=== PATIENT | male | born 1985 | race Caucasian/White ===

== ENCOUNTER 2021-10-22 10:22 | Emergency (ER) | payer OTHER, SELFPAY ==
[2021-10-22 10:30] VITALS: BP 151/86; PULSE 82; RESP 16; TEMP 36.6; O2SAT 99
--- NOTE | 2021-10-22 10:59 | ED.WOUNDLAC ---
HPI - Wound/Laceration General Chief Complaint: Wound/Laceration Stated Complaint: laceration Time Seen by Provider: 10/22/21 10:37 History of Present Illness HPI narrative: 36-year-old male presents emergency room for evaluation of a laceration to his left index finger. Patient states he was trying to unscrew a bolt from his child's truck, when the pocket knife slipped cutting his left finger. Tetanus is not up-to-date Related Data Allergies Allergy/AdvReac Type Severity Reaction Status Date / Time No Known Allergies Allergy Verified 10/22/21 10:37 Course Course Emergency Course: 1100: Patient refusing tetanus vaccination. Discussed risk and benefits with the patient he states understanding. Vital Signs Vital signs: Vital Signs Temperature 36.6 C 10/22/21 10:30 Pulse Rate 82 10/22/21 10:30 Respiratory Rate 16 10/22/21 10:30 Blood Pressure 151/86 H 10/22/21 10:30 Pulse Oximetry 99 10/22/21 10:30 Oxygen Delivery Room Air 10/22/21 10:30 Temperature 36.6 C 10/22/21 10:30 Pulse Rate 82 10/22/21 10:30 Respiratory Rate 16 10/22/21 10:30 Blood Pressure 151/86 H 10/22/21 10:30 Pulse Oximetry 99 10/22/21 10:30 Oxygen Delivery Room Air 10/22/21 10:30 Procedures Laceration Laceration 1: Date: 10/22/21 Time: 11:19 Site: hand Side (If applicable): left Size (cm): 1.5 Description: linear Depth: simple, single layer Local Anesthetic: lidocaine 1% Amount of anesthesia used (mL): 2 Pre-repair: irrigated ====== Skin Level ====== Skin layer closed with: nylon Size (cm): 5-0 Number of sutures: 3 Technique: simple, interrupted ====== Subcutaneous Layer ====== ====== Muscle Layer ====== ====== Tendon Layer ====== Discharge Plan Discharge Clinical Impression: Laceration Patient Disposition: Home, Self-Care Condition: Stable Instructions: Antibiotic Form, Laceration (ED) Additional Instructions: Tylenol and ibuprofen as needed for pain. Sutures come out in 10 days. Monitor for signs of infection which include redness, swelling, tenderness and purulent drainage. Keep wound covered. Follow-up/Referrals: PHYSICIAN NOT ON STAFF,NONSTAFF [Primary Care Provider] - Time of Disposition: 11:20
== END 2021-10-22 11:31 | disposition home or self-care (01) ==
PROVIDERS: Emergency Provider Nurse Practitioner Family
DX: S61.211A Laceration without foreign body of left index finger without damage to nail, initial encounter (principal); W26.0XXA Contact with knife, initial encounter
CPT/HCPCS: 12001; 99282

== ENCOUNTER 2022-09-11 14:47 | Emergency (ER) | payer OTHER, SELFPAY ==
--- NOTE | ~2022-09-11 | XR_ITS ---
EXAMINATION: XR ankle LT min 3V DATE: 09/11/2022 15:19 INDICATION: Left ankle pain and swelling. TECHNIQUE: 4 views of left ankle were obtained. COMPARISON: None. FINDINGS: Bone alignment is normal. No fracture. Joint spaces are well maintained. There is ankle sof t tissue swelling. IMPRESSION: 1. No fracture. Reviewed, dictated and finalized at location L. IMPRESSION: 1. No fracture.
--- NOTE | 2022-09-11 14:58 | ED.GENADULT ---
HPI - General Adult General Chief complaint: Extremity Injury, Lower Stated complaint: INJURED L ANKLE Time Seen by Provider: 09/11/22 15:02 Source: patient, RN notes reviewed and old records reviewed Mode of arrival: ambulatory (placed in wheelchair on arrival) Limitations: no limitations History of Present Illness HPI narrative: 37 year old male presents to express care with complaints of rolling his foot/ankle [place] the [place] theater. He states that he had his hands full and his 3 kids with him and the people in front of him stopped suddenly and he twisted his left foot and ankle and now has swelling to the lateral ankle and anterior ankle and pain. Patient is unable to put full weight bearing on his left foot, circulation and sensation intact to left foot with strong pedal pulse.Patient reports that he hopped in here, can't put jessica on left foot, concern for fracture, states swelling occurred immediately. MD complaint: left ankle Onset (ago): hour(s) (1 hour ago approx) Location: left and lower extremity (ankle/ foot) Severity scale (1-10): 5 Treatments prior to arrival: none Related Data Home Medications Medication Instructions Recorded Confirmed lisinopril 20 mg tablet 20 mg PO DAILY 09/11/22 09/11/22 Allergies Allergy/AdvReac Type Severity Reaction Status Date / Time No Known Allergies Allergy Verified 10/22/21 10:37 Review of Systems Review of Systems: CONSTITUTIONAL: Denies fever, chills, or sweats. EYES: Denies visual changes, redness, or discharge. ENT: Denies rhinorrhea, congestion, sore throat, or otalgia. CARDIOVASCULAR: Denies chest pain, palpitations, swelling to left ankle from injury RESPIRATORY: Denies cough or dyspnea. GASTROINTESTINAL: Denies abdominal pain, nausea, vomiting, or diarrhea. GENITOURINARY: Denies dysuria or hematuria. SKIN: Denies rash or itching. MUSCULOSKELETAL: Denies back pain, positive for pain to his left lateral anterior ankle joint pain, or myalgia. NEUROLOGIC: Denies headache, numbness, or weakness. PSYCHIATRIC: Denies anxiety or depression. All systems reviewed & are unremarkable except as noted in HPI and below PMFSH Past Medical History Medical History (Updated 09/11/22 @ 16:12 by Gaby Mcgill NP) Hypertension Surgical History Surgical History (Updated 09/11/22 @ 15:35 by Gaby Mcgill NP) History of surgery on arm right Humerus surgery ORIF Social History Social History (Updated 09/11/22 @ 15:39 by Gaby Mcgill NP) Smoking status: Never smoker Alcohol intake: current Alcohol use details: social Substance use type: does not use Living arrangements: with family Gender identity (if verbalized by the patient): Male Comments At time of signature, agree with nursing past medical, surgical, social and family history. There is no relevant family history pertinent to the presenting complaint Exam Narrative: GENERAL: Well-appearing, well-nourished, and in no acute distress. HEAD: Normocephalic, atraumatic. EYES: PERRLA and EOMI. ENT: Nares clear, no rhinorrhea or epistaxis. Mucous membranes moist. NECK: Supple. no lymphadenopathy CHEST: Clear to auscultation. No respiratory distress. HEART: Regular rate and rhythm. No murmur heard. Normal peripheral pulses. ABDOMEN: Soft, nontender, nondistended, normal active bowel sounds. EXTREMITIES: Normal range of motion. No edema.Exception noted to left anterior and lateral ankle region, pedal pulse is present of good quality, Patient is unable to put weight on his left foot, states no tingling or numbness to his left foot. SKIN: Warm, dry, no rash. NEURO: No focal deficits. Alert and oriented x3. Course Course Emergency Course: Patient is aware of diagnosis, understands and agrees to treatment plan.? Anticipatory guidance given.? Patient agrees to follow-up as directed and is aware of reasons to seek care at the emergency department. Portions of this record may have been create
[2022-09-11 15:00] VITALS: BP 158/101; PULSE 98; RESP 16; TEMP 36.7; O2SAT 100
== END 2022-09-11 16:22 | disposition home or self-care (01) ==
PROVIDERS: Emergency Provider Registered Nurse
DX: S93.402A Sprain of unspecified ligament of left ankle, initial encounter (principal); X50.9XXA Other and unspecified overexertion or strenuous movements or postures, initial encounter; I10 Essential (primary) hypertension
CPT/HCPCS: 73610; 99213; G0463